=== PATIENT | female | born 1975 | race African-American/Black ===

== ENCOUNTER 2016-07-06 22:32 | Emergency (ER) | payer OTHER ==
[~2016-07-06] VITALS: Ht 167.6 cm; Wt 81.7 kg
[~2016-07-06 22:32] MED LIST: ACETAMINOPHEN-1 EAC1 PO; AMOXICILLIN 50500 M1 PO; BACTRIM DS TAB1 EACH PO; IRON325 PO; MECLIZINE HCL25 M1 PO; MOTION RELIEF25 MG PO; MULTIVITAMINS1 EAC7; NAPROSYN500 MG PO; NOHOMEMEDICATIONS; PRENATAL PO; VITAFOL-OB+DHA1 EACH PO
[2016-07-06 23:04] LABS: HEMATOCRIT 35.3 % (37.0-47.0); MCH 30.8 pg (26.0-34.0); MCHC 34.1 g/dL (28.0-37.0); MCV 90.4 fL (80.0-100.0); RBC 3.91 mil/uL (4.20-5.00); RDW 13.2 % (10.5-14.5); WBC 6.5 thou/uL (4.0-11.0)
[2016-07-06 23:12] LABS: CREATININE 1.1 mg/dL (0.6-1.0)
[2016-07-07] MEDS ORDERED: IBUPROFEN 600600 M1 PO (00:47)
[2016-07-07 00:55] VITALS: BP 144/88
[2016-07-08 20:07] LABS: CHLAMYDIA TRACHOMATIS-PCR Negative (Negative); NEISSERIA GONORRHEA-PCR Negative (Negative)
== END 2016-07-07 00:56 | disposition home or self-care (01) ==
LOC: ER 22:32
PROVIDERS: Emergency Medicine
DX: O03.9 Complete or unspecified spontaneous abortion without complication (principal); I10 Essential (primary) hypertension; Z3A.00 Weeks of gestation of pregnancy not specified